=== PATIENT | female | born 1995 | race Caucasian/White ===

== ENCOUNTER 2016-12-26 22:57 | Emergency (ER) | payer OTHER ==
[2016-12-26 23:03] VITALS: BP 113/70; PULSE 113; TEMP 99.1; BMI 33.8
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
== END 2016-12-27 00:39 | disposition home or self-care (01) ==
LOC: JER 22:57
DX: O26.892 Other specified pregnancy related conditions, second trimester (principal); J06.9 Acute upper respiratory infection, unspecified; K08.89 Other specified disorders of teeth and supporting structures; Z3A.24 24 weeks gestation of pregnancy
CPT/HCPCS: 99282-25

== ENCOUNTER 2017-03-06 09:00 | Inpatient (IN) | payer OTHER ==
[2017-03-06 10:26] VITALS: BMI 39.1
[2017-03-06] MEDS ORDERED: morphine SULFATE/Preservative Free 0.5 MG/ML (1cc Syringe) ONE (10:52)
[2017-03-06] MEDS ORDERED: OXYTOCIN 10 UNITS/ML VIAL ONE (10:54)
[2017-03-06] MEDS ORDERED: ceFAZolin SODIUM 1 GM VIAL ONE (10:54)
[2017-03-06] MEDS ORDERED: ONDANSETRON 4 MG/2 ML VIAL IVPUSH PRN (10:58)
[2017-03-06] MEDS ORDERED: IBUPROFEN 800 MG/8 ML IJ IVPB PRN (12:08)
[2017-03-06] MEDS ORDERED: METHYLERGONOVINE MALEATE 0.2 MG/1 ML AMP IM PRN (12:08)
[2017-03-06] MEDS ORDERED: BENZOCAINE 20% 57 GM BOTTLE TP PRN (12:08)
[2017-03-06] MEDS ORDERED: WITCH HAZEL 50% (TUCKS) 40 PAD/JAR PAD TP PRN (12:08)
[2017-03-06] MEDS ORDERED: BENZOCAINE 28 GM HEMORRHOIDAL OINTMENT PR PRN (12:08)
[2017-03-06] MEDS ORDERED: diphenhydrAMINE HCL 25 MG CAPSULE (FP) PO PRN (12:08)
[2017-03-06] MEDS ORDERED: OXYTOCIN 20 UNITS in 0.9% NS 20 UNIT/1,000 ML INFUS.BAG IV SCH (12:15)
--- NOTE | 2017-03-06 12:17 | HP ---
Past Medical History - Primary Care Physician PCP:: Yousif Beach - Admission Chief Complaint: 39 weeks, previous c/s, request of repeat c/s History of Present Illness: 22 yo f edc by sono 03/12/17 39 weeks, with previous c[place] done [place] , requesting repeat c/s, risks discussed, encouraged History Source: Patient Limitations to Obtaining History: Language Barrier - Past Medical History ...: 2 ...Para: 1 ...LMP: 06/27/16 ... Weeks Gestation by Dates: 36 ...EDC by Dates: 04/03/17 ...EDC by Sono: 03/12/17 - Past Surgical History Past Surgical History: Yes: Hx Myomectomy: No Hx Transabdominal Cerclage: No - Smoking History Smoking history: Never smoked Have you smoked in the past 12 months: No - Alcohol/Substance Use Hx Alcohol Use: No - Social History Usual Living Arrangement: Yes: With Spouse History of Recent Travel: No Home Medications - Allergies Allergies/Adverse Reactions: Allergies Allergy/AdvReac Type Severity Reaction Status Date / Time No Known Allergies Allergy Verified 12/26/16 23:15 - Home Medications Home Medications: Ambulatory Orders NK [No Known Home Medication] 12/26/16 Review of Systems - Review of Systems Constitutional: reports: No Symptoms Eyes: reports: No Symptoms HENT: reports: No Symptoms Neck: reports: No Symptoms Cardiovascular: reports: No Symptoms Respiratory: reports: No Symptoms Gastrointestinal: reports: No Symptoms Genitourinary: reports: No Symptoms Musculoskeletal: reports: Back Pain Integumentary: reports: No Symptoms Neurological: reports: No Symptoms Endocrine: reports: No Symptoms Hematology/Lymphatic: reports: No Symptoms Psychiatric: reports: No Symptoms Physical Exam - Maternity Vital Signs: Vital Signs Temperature 98.0 F 03/06/17 10:17 Pulse Rate 88 03/06/17 10:17 Respiratory Rate 18 03/06/17 10:17 Blood Pressure 125/67 03/06/17 10:17 O2 Sat by Pulse Oximetry (%) Constitutional: Yes: Well Nourished, No Distress, Calm Eyes: Yes: WNL, Conjunctiva Clear, EOM Intact HENT: Yes: WNL, Atraumatic, Normocephalic Neck: Yes: WNL, Supple, Trachea Midline Cardiovascular: Yes: WNL, Regular Rate and Rhythm Breast(s): Yes: WNL - Abdominal Exam/OB Fundal Height: 40 Number of Fetuses: Single Presentation: Vertex Intensity: Unaware Monitor Mode: External Heart Rate Location: [facility] Category: I Accelerations: Uniform Decelerations: None - Vaginal Exam/OB Vaginal Bleediing: No Speculum Exam: No Dilatation (cm): closed Effacement (%): long Amniotic Membrane Status: Intact Presentation: Vertex/Position Station: -3 - Physical Exam Extremities: Yes: WNL Edema: LLE: Trace, RLE: Trace Deep Tendon Reflex Grade: Normal +2 Psychiatric: Yes: WNL Hemorrhage Risk Assessment - Risk Factors Medium Risk Factors: Yes: Prior , uterine surgery,or multiple laparotomies Risk Score: 1 Risk Level: Medium Risk Problem List - Problems (1) with 39 completed weeks gestation Code(s): Z3A.39 - 39 WEEKS GESTATION OF (2) Previous section Code(s): Z98.891 - HISTORY OF UTERINE SCAR FROM PREVIOUS SURGERY Assessment/Plan for rep`eat c/s , rba discussed
[2017-03-06] MEDS ORDERED: CITRIC ACID/SODIUM CITRATE 30 ML UNIT-DOSE CUP PO ONE ×2 (12:34→12:35)
--- NOTE | 2017-03-06 13:43 | OP ---
DATE OF OPERATION: 03/06/2017 PREOPERATIVE DIAGNOSIS: , 39 weeks; previous section; requests a repeat section. POSTOPERATIVE DIAGNOSIS: , 39 weeks; previous section; requests a repeat section. PROCEDURE: Repeat low-segment transverse section. SURGEON: Shana Beach MD WRITER TECHNICAL PUBLICATIONS: RUBI Seo ANESTHESIA: Spinal. ANESTHESIOLOGIST: Florin Patiño MD ESTIMATED BLOOD LOSS: 500 mL FINDING: A live baby girl, Apgars 9 and 10, ROT position. COMPLICATIONS: None. DESCRIPTION OF OPERATIVE PROCEDURE: Patient was taken to the operating room. Under adequate spinal anesthesia, abdomen and perineum were prepped and draped. Pfannenstiel abdominal skin incision was made over the previous incision. Abdominal wall was cut layer by layer until peritoneum was exposed and incised. Upon entering the abdominal cavity, lower uterine segment was identified and uterovesical fold of peritoneum established. Bladder was pushed down. A low transverse uterine incision was made. Incision extended laterally with the bandage scissors. Amniotic sac was entered, clear fluid. Head delivered. Nasopharynx was suctioned, and live baby girl was delivered without any difficulty. Placenta was delivered manually. Uterine cavity was cleaned out of remaining tissue. Uterine incision was closed in 2 layers, first layer with 0 Biosyn continuous suture, the second layer with 0 Biosyn imbricating the first layer. Bladder flap was closed with 0 Biosyn continuous suture. Both tubes and ovaries were checked, were normal. No active bleeding was seen. All the lap packs, sponge, and instrument counts were correct. Then, peritoneum was closed with 0 Biosyn continuous suture. Muscles were brought together with interrupted sutures of 0 Biosyn. Fascia was closed with 0 Biosyn continuous suture, subcutaneous fat with interrupted suture of 0 Biosyn, and the skin was closed with elpidio. Patient tolerated the procedure well, left the OR in good condition. SHANA BAECH M.D. /[id number]
[2017-03-06] MEDS ORDERED: ELECTROLYTE-148 SOLN 1,000 ML IV ONE (13:45)
[2017-03-06] MEDS: IBUPROFEN 800 MG/8 ML IJ IVPB PRN ×2 (14:30→21:15)
[2017-03-06] MEDS: CEFAZOLIN 1 GM PUSH 1 GM/10 ML DISP.SYRIN IVPUSH SCH (17:14)
[2017-03-06] MEDS: DEXTROSE 5%-LACTATED RINGERS 1,000 ML IV SCH (21:17)
[2017-03-07] MEDS: CEFAZOLIN 1 GM PUSH 1 GM/10 ML DISP.SYRIN IVPUSH SCH (01:59)
[2017-03-07] MEDS: SIMETHICONE 80 MG TAB.CHEW (FP) PO PRN ×4 (05:15→20:02)
[2017-03-07] MEDS: IBUPROFEN 600 MG TABLET (FP) PO PRN ×4 (05:15→20:02)
[2017-03-07] MEDS: oxyCODONE HCL 5 MG TABLET PO PRN ×4 (05:16→20:03)
[2017-03-07] MEDS: DEXTROSE 5%-LACTATED RINGERS 1,000 ML IV SCH ×2 (05:17→22:29)
--- NOTE | 2017-03-07 06:43 | PN ---
Post Progress Note - Subjective Subjective: c/o pain scale 6/10 ann just removed Post Day: 1 Type of Delivery: Repeat C/S Vital Signs: Vital Signs Temperature 99.3 F 03/07/17 05:57 Pulse Rate 93 H 03/07/17 05:57 Respiratory Rate 18 03/07/17 05:57 Blood Pressure 123/61 03/07/17 05:57 O2 Sat by Pulse Oximetry (%) Breast Exam: Yes: Soft, Other (plans to BF ). No: Engorged Uterus: Yes: Fundus Firm, Fundus below umbilicus, Non-tender Incision: Yes: Dressing dry and intact. No: Redness, Oozing Abdomen/GI: Yes: Abdomen soft (bs active ), Tender, Tolerating PO (clear liqiuds ). No: Abdominal Distention, Passing flatus Lochia: Yes: Rubra Lochia, amount: Moderate Extremities: Yes: Calves non-tender. No: Calf tenderness Perineum: Yes: Intact Activity: Other (not oob yet) Other Findings, Remarks: i/o adequate Assessment/Plan stable plan repeat cbc today encourage ambulation, deep breathing, po fluids
[2017-03-07 08:41] LABS: BASO % 0.2 % (0-2.0); EOS % 0.9 % (0-4.5); HEMATOCRIT 33.1 % (32.4-45.2); HEMOGLOBIN 10.8 GM/dL (10.7-15.3); LYMPH % 18.5 % (8-40); MCH 27.3 pg (25.7-33.7); MCHC 32.6 g/dl (32.0-36.0); MEAN CELL VOLUME 83.9 fl (80-96); MEAN PLT VOLUME 8.4 fl (7.5-11.1); MONO % 8.3 % (3.8-10.2); NEUT % 72.1 % (42.8-82.8); PLATELET COUNT 183 K/MM3 (134-434); RBC 3.95 M/mm3 (3.60-5.2); RDW 18.4 % (11.6-15.6); WHITE BLOOD COUNT 10.6 K/mm3 (4.0-10.0)
--- NOTE | 2017-03-07 08:45 | PN ---
Progress Note, Physician Chief Complaint: day #1 s/p C/S with duramorph - Current Medication List Current Medications: Active Medications Benzocaine (Americaine 20% [place] -) 1 spray TP PRN PRN PRN Reason: PAIN Benzocaine (Americaine Ointment -) 1 applic [place] PRN PRN PRN Reason: PAIN Bisacodyl (Dulcolax Suppository -) 10 mg RC PRN PRN PRN Reason: CONSTIPATION Diphenhydramine HCl (Benadryl Injection -) 25 mg IVPUSH Q4H PRN PRN Reason: FOR ITCHING Diphenhydramine HCl (Benadryl -) 25 mg PO Q8H PRN PRN Reason: FOR ITCHING Enoxaparin Sodium (Lovenox -) 40 mg SQ DAILY TARUN Dextrose/Lactated Ringer's (D5-Lr -) 1,000 mls @ 125 mls/hr IV ASDIR TARUN Last Admin: 03/07/17 05:17 Dose: 125 mls/hr Ibuprofen (Caldolor Injection -) 800 mg IVPB Q6H PRN PRN Reason: Pain - Pacu Stop: 03/07/17 11:11 Last Admin: 03/06/17 21:15 Dose: 800 mg Ibuprofen (Motrin -) 600 mg PO Q4H PRN PRN Reason: PAIN Last Admin: 03/07/17 05:15 Dose: 600 mg Ibuprofen (Caldolor Injection -) 800 mg IVPB Q6H PRN PRN Reason: PAIN Methylergonovine Maleate (Methergine Injection -) 0.2 mg IM Q4H PRN PRN Reason: EXCESSIVE BLEEDING Ondansetron HCl (Zofran Injection) 4 mg IVPUSH Q6H PRN PRN Reason: NAUSEA AND/OR VOMITING Oxycodone HCl (Roxicodone -) 5 mg PO Q4H PRN PRN Reason: PAIN LEVEL 1-5 Last Admin: 03/07/17 05:16 Dose: 5 mg Oxycodone HCl (Roxicodone -) 10 mg PO Q4H PRN PRN Reason: PAIN LEVEL 6-10 Senna/Docusate Sodium (Pericolace -) 2 tablet PO HS PRN PRN Reason: CONSTIPATION Simethicone (Mylicon -) 80 mg PO Q4H PRN PRN Reason: GAS Last Admin: 03/07/17 05:15 Dose: 80 mg Witch Dara/Glycerin (Tucks Pads -) 1 pad TP PRN PRN PRN Reason: PAIN - Objective Vital Signs: Vital Signs Temperature 99.3 F 03/07/17 05:57 Pulse Rate 93 H 03/07/17 05:57 Respiratory Rate 18 03/07/17 05:57 Blood Pressure 123/61 03/07/17 05:57 O2 Sat by Pulse Oximetry (%) Constitutional: Yes: Well Nourished, No Distress, Calm Labs: CBC, BMP 03/07/17 08:00 Assessment/Plan No anesthetic issues, doing well. Continue current care
[2017-03-07] MEDS: ENOXAPARIN NA (PORCINE) 40 MG/0.4 ML DISP.SYRIN SQ SCH (10:22)
[2017-03-07] MEDS ORDERED: BISACODYL 10 MG SUPP.RECT RC PRN (12:09)
[2017-03-08] MEDS: IBUPROFEN 600 MG TABLET (FP) PO PRN ×6 (00:49→22:12)
[2017-03-08] MEDS: SIMETHICONE 80 MG TAB.CHEW (FP) PO PRN ×6 (00:49→22:12)
[2017-03-08] MEDS: oxyCODONE HCL 5 MG TABLET PO PRN ×6 (00:50→22:11)
[2017-03-08] MEDS: ENOXAPARIN NA (PORCINE) 40 MG/0.4 ML DISP.SYRIN SQ SCH (09:29)
--- NOTE | 2017-03-08 10:12 | PN ---
Post Progress Note - Subjective Subjective: 22 yo Para 2 status post repeat , seen and evaluated. She c/o incision pain. Post Day: 2 Type of Delivery: Repeat C/S Vital Signs: Vital Signs Temperature 98.3 F 03/08/17 09:38 Pulse Rate 80 03/08/17 09:38 Respiratory Rate 18 03/08/17 09:38 Blood Pressure 110/65 03/08/17 09:38 O2 Sat by Pulse Oximetry (%) Breast Exam: Yes: Soft Uterus: Yes: Fundus Firm Incision: Yes: Mills intact Abdomen/GI: Yes: Abdomen soft, Tolerating PO Lochia: Yes: Rubra Lochia, amount: Small Extremities: Yes: Calves non-tender Perineum: Yes: Intact Activity: Ambulating - Labs Labs: CBC WBC 10.6 K/mm3 (4.0-10.0) H 03/07/17 08:00 RBC 3.95 M/mm3 (3.60-5.2) 03/07/17 08:00 Hgb 10.8 GM/dL (10.7-15.3) D 03/07/17 08:00 Hct 33.1 % (32.4-45.2) 03/07/17 08:00 MCV 83.9 fl (80-96) 03/07/17 08:00 MCH 27.3 pg (25.7-33.7) 03/07/17 08:00 MCHC 32.6 g/dl (32.0-36.0) 03/07/17 08:00 RDW 18.4 % (11.6-15.6) H 03/07/17 08:00 Plt Count 183 K/MM3 (134-434) 03/07/17 08:00 MPV 8.4 fl (7.5-11.1) 03/07/17 08:00 Neutrophils % 72.1 % (42.8-82.8) 03/07/17 08:00 Lymphocytes % 18.5 % (8-40) 03/07/17 08:00 Monocytes % 8.3 % (3.8-10.2) 03/07/17 08:00 Eosinophils % 0.9 % (0-4.5) 03/07/17 08:00 Basophils % 0.2 % (0-2.0) 03/07/17 08:00 Problem List - Problems (1) Status post repeat low transverse section Code(s): Z98.891 - HISTORY OF UTERINE SCAR FROM PREVIOUS SURGERY Assessment/Plan Status post repeat Stable Ambulation Analgesia as needed Continue post op care
[2017-03-08] MEDS: SENNOSIDES/DOCUSATE COMBO (SENNA PLUS) TABLET (UD) PO PRN (20:20)
[2017-03-08] MEDS: ACETAMINOPHEN 325 MG TABLET (FP) PO PRN (20:21)
[2017-03-09] MEDS: SIMETHICONE 80 MG TAB.CHEW (FP) PO PRN ×3 (06:12→16:56)
[2017-03-09] MEDS: IBUPROFEN 600 MG TABLET (FP) PO PRN ×4 (06:14→21:15)
[2017-03-09] MEDS: oxyCODONE HCL 5 MG TABLET PO PRN ×2 (06:14→10:58)
[2017-03-09] MEDS: ACETAMINOPHEN 325 MG TABLET (FP) PO PRN ×4 (06:15→21:16)
[2017-03-09 07:30] LABS: BASO % 0.4 % (0-2.0); EOS % 2.9 % (0-4.5); HEMATOCRIT 30.5 % (32.4-45.2); HEMOGLOBIN 9.9 GM/dL (10.7-15.3); LYMPH % 28.2 % (8-40); MCH 27.3 pg (25.7-33.7); MCHC 32.5 g/dl (32.0-36.0); MEAN PLT VOLUME 8.4 fl (7.5-11.1); MONO % 8.5 % (3.8-10.2); PLATELET COUNT 187 K/MM3 (134-434); RBC 3.64 M/mm3 (3.60-5.2); RDW 18.3 % (11.6-15.6); WHITE BLOOD COUNT 8.2 K/mm3 (4.0-10.0)
[2017-03-09] MEDS: ENOXAPARIN NA (PORCINE) 40 MG/0.4 ML DISP.SYRIN SQ SCH (10:56)
--- NOTE | 2017-03-09 13:57 | PN ---
Progress Note (short form) - Note Progress Note: pod 2 , s/p c/s ambulating, tolerating diet, passing gas CBC, BMP 03/09/17 0 Last Vital Signs Temp Pulse Resp BP Pulse Ox 98.3 F 80 18 112/67 03/09/17 10:00 03/09/17 10:00 03/09/17 10:00 03/09/17 10:00 CBC, BMP 03/09/17 07:09 abdomen soft, no distension , no cva incision drt, clean no calf tenderness no excess vaginal bleeding plan ambulate, cbc in am pain management Problem List - Problems (1) with 39 completed weeks gestation Code(s): Z3A.39 - 39 WEEKS GESTATION OF (2) Previous section Code(s): Z98.891 - HISTORY OF UTERINE SCAR FROM PREVIOUS SURGERY
[2017-03-09] MEDS: SENNOSIDES/DOCUSATE COMBO (SENNA PLUS) TABLET (UD) PO PRN (21:17)
[2017-03-10] MEDS: IBUPROFEN 600 MG TABLET (FP) PO PRN ×3 (02:31→12:14)
[2017-03-10] MEDS: ACETAMINOPHEN 325 MG TABLET (FP) PO PRN ×3 (02:32→12:15)
--- NOTE | 2017-03-10 07:09 | PN ---
Post Progress Note Post Day: 3 Type of Delivery: Repeat C/S Vital Signs: Vital Signs Temperature 98.8 F 03/09/17 22:00 Pulse Rate 91 H 03/09/17 22:00 Respiratory Rate 18 03/09/17 22:00 Blood Pressure 121/71 03/09/17 22:00 O2 Sat by Pulse Oximetry (%) Breast Exam: Yes: Soft Uterus: Yes: Fundus Firm Incision: Yes: Paul intact Abdomen/GI: Yes: Abdomen soft Lochia, amount: Small Perineum: Yes: Intact Activity: Ambulating - Labs Labs: CBC WBC 8.2 K/mm3 (4.0-10.0) 03/09/17 07:09 RBC 3.64 M/mm3 (3.60-5.2) 03/09/17 07:09 Hgb 9.9 GM/dL (10.7-15.3) L 03/09/17 07:09 Hct 30.5 % (32.4-45.2) L 03/09/17 07:09 MCV 84.0 fl (80-96) 03/09/17 07:09 MCH 27.3 pg (25.7-33.7) 03/09/17 07:09 MCHC 32.5 g/dl (32.0-36.0) 03/09/17 07:09 RDW 18.3 % (11.6-15.6) H 03/09/17 07:09 Plt Count 187 K/MM3 (134-434) 03/09/17 07:09 MPV 8.4 fl (7.5-11.1) 03/09/17 07:09 Neutrophils % 60.0 % (42.8-82.8) 03/09/17 07:09 Lymphocytes % 28.2 % (8-40) D 03/09/17 07:09 Monocytes % 8.5 % (3.8-10.2) 03/09/17 07:09 Eosinophils % 2.9 % (0-4.5) D 03/09/17 07:09 Basophils % 0.4 % (0-2.0) 03/09/17 07:09 Assessment/Plan oob reg diet continue care pain control
[2017-03-10] MEDS: ENOXAPARIN NA (PORCINE) 40 MG/0.4 ML DISP.SYRIN SQ SCH (09:33)
[2017-03-10 11:23] VITALS: BP 132/78; PULSE 92; TEMP 98.3
--- NOTE | 2017-03-12 09:45 | DS ---
Physical Exam-SAS PROGRAMMER REMOTE Vital Signs: Vital Signs Temperature 98.3 F 03/10/17 10:00 Pulse Rate 92 H 03/10/17 10:00 Respiratory Rate 20 03/10/17 10:00 Blood Pressure 132/78 03/10/17 10:00 O2 Sat by Pulse Oximetry (%) Constitutional: Yes: Well Nourished, No Distress, Calm Eyes: Yes: WNL, Conjunctiva Clear, EOM Intact HENT: Yes: WNL, Atraumatic, Normocephalic Neck: Yes: WNL, Supple, Trachea Midline Cardiovascular: Yes: WNL, Regular Rate and Rhythm Respiratory: Yes: WNL, Regular, CTA Bilaterally Gastrointestinal: Yes: WNL ...Rectal Exam: Yes: WNL Renal/: Yes: WNL ....Post : Yes: Uterus firm, Uterus non-tender, Slight lochia rubra Breast(s): Yes: WNL Musculoskeletal: Yes: WNL Extremities: Yes: WNL Edema: No Integumentary: Yes: WNL Neurological: Yes: WNL, Alert, Oriented ...Motor Strength: WNL Psychiatric: Yes: WNL, Alert, Oriented Labs: CBC, BMP 03/09/17 07:09 Delivery - Delivery Section: Primary, Low Flap Transverse Type of Anesthesia: Spinal EBL (cc): 500 Delivery, Single - Stages of Labor Date of Delivery: 03/06/17 Time of Delivery: 11:31 Time Placenta Delivered: 11:33 Placenta: Yes: Expressed - Condition of Education And Development Manager/Electrician'S Assistant Present: Yes Name: Antoine Ashley Gender: Female Weight: 7 lb 9 oz Position: Right, OT Total Hours ROM (Hrs/Mins): 3M - 1 Minute Total Score: 8 5 Minutes Total Score: 9 - [place] Feeding Plan Initial Plan: Elected not to breastfeed exclusively throughout hospitalization Discharge Summary Reason For Visit: Procedures: Principal: primary LST c/s Condition: Good - Instructions Diet, Activity, Other Instructions: FOLLOW UP IN [facility] 03/13/17 FOR STAPLE REMOVAL. CALL FOR APPOINTMENT [phone]. Disposition: HOME - Home Medications Comprehensive Discharge Medication List: Ambulatory Orders NK [No Known Home Medication] 12/26/16
--- NOTE | 2017-03-14 14:45 | PATH ---
Surgical Pathology Report Patient Name: ARLINE GILL [facility]. Rec. #: [id number] /Age/Gender: 1995 (Age: 22) / F Account: [id number] Location: [facility] OBS/TRANSPORTER RADIOLOGY Taken: 03/06/2017 Received: 03/07/2017 Reported: 03/14/2017 Physicians: Yousif Beach M.D. Specimen(s) Received PLACENTA Clinical History Previous [id number] Final Diagnosis PLACENTA, SECTION: 479 g THIRD TRIMESTER PLACENTA WITH TRIVASCULAR UMBILICAL CORD AND UNREMARKABLE PLACENTAL MEMBRANES. Electronically Signed Ktaie Beaulieu M.D. Gross Description The specimen is received fresh labeled placenta and is a 479 gram, 16.0 x 16.0 x 2.2 cm. placenta with attached membranes and umbilical cord. The attached membranes are kennedy, translucent with focal opacities and insert marginally. The umbilical cord measures 31 cm. in length and averages 1 cm. in diameter. The cord inserts eccentrically, 6 cm. to the nearest margin. No true knots or strictures are identified. Cut surface of the umbilical cord reveals 3 vessels. The surface is staley-blue with minimal fibrin deposition and appropriate caliber vessels. The maternal surface is red-brown with focal defects. Sectioning reveals red-brown, spongy parenchyma. No lesions are identified. Family Living Educator sections are submitted in three cassettes as follows: 1- membrane rolls and umbilical cord; 2-3- full thickness sections of placenta. 03/09/201703/09/2017
== END 2017-03-10 13:20 | disposition home or self-care (01) | DRG 540 ==
LOC: JLDR 10:00 → J3W 13:09
PROVIDERS: ADMIT Obstetrics & Gynecology; ATTEND Obstetrics & Gynecology
PROC: 10D00Z1 Extraction of Products of Conception, Low, Open Approach (ICD-10-PCS; principal; 2017-03-06)
DX: O34.211 Maternal care for low transverse scar from previous cesarean delivery (principal); O99.214 Obesity complicating childbirth; E66.8 Other obesity; Z68.39 Body mass index [BMI] 39.0-39.9, adult; Z3A.39 39 weeks gestation of pregnancy; Z37.0 Single live birth
CPT/HCPCS: 36415; 85025; 88307-TC